=== PATIENT | female | born 2000 | race Caucasian/White ===

== ENCOUNTER 2023-09-28 12:53 | Outpatient (REF) | payer OTHER, SELFPAY ==
--- NOTE | 2023-09-28 13:00 | EEG_ITS ---
This is a 24-hour ambulatory EEG. The patient apparently did not provide any diary and no symptoms were reported. This EEG included wakefulness and sleep. Background EEG rhythm during wakefulness was low amplitude fast with no obvious asymmetry or paroxysmal tendency. Frequent muscle lead and movement artifacts were noted. The patient transitioned into drowsiness and then sleep with no significant abnormality noted. Cardiac lead did not reveal any significant abnormality. IMPRESSION: Unremarkable 24-hour ambulatory EEG with patient not reporting any events. MD CHAR Mcadams/NIRALI / [id number]
== END 2023-09-28 12:54 | disposition home or self-care (01) ==
LOC: HO.NEURO 12:53
PROVIDERS: PCP Nurse Practitioner Family; Visit Provider Nurse Practitioner Family
DX: G40.89 Other seizures (principal)
CPT/HCPCS: 95708